=== PATIENT | male | born 1990 | race Caucasian/White ===

== ENCOUNTER 2017-02-17 21:47 | Emergency (ER) | payer BC ==
[~2017-02-17] VITALS: Ht 188 cm; Wt 95.0 kg
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
[2017-02-17 22:00] VITALS: BP 141/99; PULSE 91; RESP 16; TEMP 98.8; O2SAT 99
[2017-02-17] MEDS ORDERED: TETANUS/DIPHTHERIA TOXOID ADULT 0.5 ML VIAL IM ONE (22:15)
--- NOTE | 2017-02-17 22:50 | RADRPT ---
EXAM DATE/TIME: 02/17/2017 22:07 [facility] COMPARISON: No previous studies available for comparison. INDICATIONS : Trauma. Laceration top of head. RADIATION DOSE: 56.35 CTDIvol (mGy) MEDICAL HISTORY : None SURGICAL HISTORY : None. ENCOUNTER: Initial ACUITY: 1 day PAIN SCALE: 4/10 LOCATION: cranial TECHNIQUE: Multiple contiguous axial images were obtained of the head. Using automated exposure control and adj ustment of the mA and/or kV according to patient size, radiation dose was kept as low as reasonably a chievable to obtain optimal diagnostic quality images. FINDINGS: CEREBRUM: The ventricles are normal for age. No evidence of midline shift, mass lesion, hemorrhage or acute in farction. No extra-axial fluid collections are seen. POSTERIOR FOSSA: The cerebellum and brainstem are intact. The 4th ventricle is midline. The cerebellopontine angle i s unremarkable. EXTRACRANIAL: The visualized portion of the orbits is intact. SKULL: The calvaria is intact. No evidence of skull fracture. CONCLUSION: Negative. Jorge A Gandara MD FACR on February 17, 2017 at 22:48 Board Certified Radiologist. This report was verified electronically.
[2017-02-17] MEDS ORDERED: LIDOCAINE 1%/EPINEPHrine 1:100,000 SOLN 20 ML VIAL INFIL ONE (23:15)
== END 2017-02-17 23:37 | disposition home or self-care (01) ==
LOC: NEPD 21:47
DX: S01.01XA Laceration without foreign body of scalp, initial encounter (principal); Z23 Encounter for immunization; Z72.0 Tobacco use; W20.8XXA Other cause of strike by thrown, projected or falling object, initial encounter; Y93.9 Activity, unspecified; Y92.9 Unspecified place or not applicable; Y99.8 Other external cause status
CPT/HCPCS: 12001; 70450; 90471; 90714